=== PATIENT | male | born 1990 | race Caucasian/White ===

== ENCOUNTER 2018-07-15 13:25 | Emergency (ER) ==
[2018-07-15 13:42] VITALS: BP 115/72; TEMP 98.7; BMI 19.0
[2018-07-15] MEDS ORDERED: TORADOL IM STA (14:32)
--- NOTE | 2018-07-15 14:36 | ED.PDOC ---
General ED Provider: Dr. TIM MOLINA Chief Complaint: Tooth Problem Stated Complaint: Rt lower gum infection, wears dentures, rubbing gums Time Seen by Physician: 14:20 Mode of Arrival: Walk-In Information Source: Patient Exam Limitations: No limitations Nursing and Triage Documentation Reviewed and Agree: Yes Does patient meet sepsis criteria?: No System Inflammatory Response Syndrome: Not Applicable Sepsis Protocol: For patient's 13 years and over: Temp is 96.8 and below OR 101 and greater Pulse >90 BPM Resp >20/minute Acutely Altered Mental Status Are patient's symptoms suggestive of a new infection, such as: -Pneumonia -Skin, Soft Tissue -Endocarditis -UTI -Bone, Joint Infection -Implantable Device -Acute Abdominal Infection -Wound Infection -Meningitis -Blood Stream Catheter Infection -Unknown EENT Complaint Exam - Dental/Oral Complaint/Exam Mechanism of Injury: Unknown Onset/Duration: Today Symptoms Are: Still present Timing: Constant Initial Severity: Moderate Current Severity: Moderate Character: Reports: Aching Aggravating: Reports: Cold, Chewing Alleviating: Reports: None Associated Signs and Symptoms: Reports: Swelling, Foul taste in mouth Related History: Reports: Similar episode Cardiac Risk Factors: Reports: None Dental/Oral Surgical History: Reports: Periodontal Surgery Review of Systems - Review Of Systems Constitutional: Reports: No symptoms Eyes: Reports: No symptoms Ears, Nose, Mouth, Throat: Reports: Mouth pain Respiratory: Reports: No symptoms Cardiac: Reports: No symptoms GI: Reports: No symptoms : Reports: No symptoms Musculoskeletal: Reports: No symptoms Skin: Reports: No symptoms Neurological: Reports: No symptoms Endocrine: Reports: No symptoms Hematologic/Lymphatic: Reports: No symptoms All Other Systems: Reviewed and Negative Past Medical History - Past Medical History Previously Healthy: Yes Endocrine: Reports: None Cardiovascular: Reports: None Respiratory: Reports: None Hematological: Reports: None Gastrointestinal: Reports: None Genitourinary: Reports: None Neuro/Psych: Reports: None Musculoskeletal: Reports: None Cancer: Reports: None - Surgical History General Surgical History: Reports: None - Family History Family History: Reports: None - Social History Smoking Status: Former smoker Hx Substance Use: No Alcohol Screening: None - Immunizations Tetanus Shot up to Date: Yes Physical Exam - Physical Exam Appearance: Well-appearing, No pain distress, Well-nourished, Thin Ill-appearing: Mild Pain Distress: Mild Eyes: PAWEL, EOMI, Conjunctiva clear ENT: Ears normal, Nose normal, Oropharynx normal, Dry mucosa (moist oral mucosa) Respiratory: Airway patent, Breath sounds clear, Breath sounds equal, Respirations nonlabored Cardiovascular: RRR, Pulses normal, No rub, No murmur GI/: Soft, Nontender, No masses, Bowel sounds normal, No Organomegaly Musculoskeletal: Normal strength, ROM intact, No edema, No calf tenderness Skin: Warm, Dry, Normal color Neurological: Sensation intact, Motor intact, Reflexes intact, Cranial nerves intact, Alert, Oriented Psychiatric: Affect appropriate, Mood appropriate Critical Care Note - Critical Care Note Total Time (mins): 0 Course - Course Vital Signs: Temp Pulse Resp BP Pulse Ox 07/15/18 13:26 98.7 F 85 16 115/72 98 Departure - Departure Time of Disposition: 15:10 Disposition: HOME SELF-CARE Discharge Problem: Gingivitis, acute Instructions: Gingivitis (ED) Condition: Good Pt referred to PMD for follow-up: Yes IPMP verified?: Yes Additional Instructions: Rinse mouth with salt water Discontinue using oral nicotine/smokeless tobacco Take antibiotics Follow up primary care physician in 1 week Prescriptions: Clindamycin HCl [Cleocin] 150 mg PO Q6HR #30 cap Ketorolac Tromethamine [Toradol] 10 mg PO Q6HR #20 tablet Allergies/Adverse Reactions: Allergies Penicillins Adverse Reaction (Verified 07/15/18 13:32) Home Medications: Ambulatory Orders Clindamycin HCl [Cleocin] 150 mg PO Q6HR #30 cap 07/15/18 Ketorolac Tromethamine [Toradol] 10 mg PO Q6HR #20 tablet 07/15/18 Disposition Discussed With: Patient
== END 2018-07-15 15:20 | disposition home or self-care (01) ==
LOC: ED 13:25
DX: K05.00 Acute gingivitis, plaque induced (principal)
CPT/HCPCS: 96372; 99283